=== PATIENT | female | born 1980 | race Caucasian/White ===

== ENCOUNTER 2022-09-09 02:00 | Emergency (ER) | payer SELFPAY ==
[~2022-09-09] VITALS: Ht 172.7 cm; Wt 90.0 kg
[2022-09-09 02:12] VITALS: BP 146/88
[2022-09-09 03:22] LABS: BASOPHILS % 0.9 % (0.0-2.0); EOSINOPHILS % 2.3 % (0.0-5.0); HEMATOCRIT. 32.9 % (36.0-48.0); HEMOGLOBIN. 10.3 g/dL (12.0-16.0); LYMPHOCYTES % 32.6 % (20.0-50.0); MEAN CORPUSCULAR VOLUME 76.2 fL (81.0-99.0); MEAN PLATELET VOLUME 8.1 fl (7.4-10.4); MONOCYTES % 5.9 % (2.0-8.0); NEUTROPHILS % 58.3 % (40.0-76.0); PLATELET 286 x1000/uL (130-400); RED BLOOD CELL COUNT 4.32 mill/uL (4.2-5.4); RED CELL DISTRIBUTION WIDTH 16.5 % (11.6-14.6)
[2022-09-09 03:36] LABS: CHLORIDE 114 mEq/L (98-107)
[2022-09-09 03:45] LABS: ETHANOL BLOOD 236 mg/dL
[2022-09-09 04:04] LABS: HCG SCREEN NEGATIVE
== END 2022-09-09 08:00 | disposition home or self-care (01) ==
LOC: ER 02:00
DX: R41.82 Altered mental status, unspecified (principal)
CPT/HCPCS: 36415; 80053; 80320; 84703; 85025; 93005; 99284; G0480